=== PATIENT | male | born 1985 | race Caucasian/White ===

== ENCOUNTER 2020-10-14 01:28 | Emergency (ER) | payer MEDICAID ==
[2020-10-14] MEDS ORDERED: Ketorolac 60 MG/2 ML SDV IM ONE (02:08)
[2020-10-14] MEDS ORDERED: Acetaminophen 325 MG Tab PO ONE (02:08)
[2020-10-14] MEDS ORDERED: Cyclobenzaprine 10 MG Tab PO ONE (02:09)
--- NOTE | 2020-10-14 02:14 | EDM.PDOC ---
ED HPI GENERAL MEDICAL PROBLEM - General Chief Complaint: Back Pain or Injury Stated Complaint: BACK PAIN Time Seen by Provider: 10/14/20 01:51 Source of Information: Reports: Patient, RN Notes Reviewed - History of Present Illness INITIAL COMMENTS - FREE TEXT/NARRATIVE: 35 yr old male with onset of back pain 1 1/2 days ago, now worse. Pain is L mid back without radiation. Worse with motion with occasional spasms. No hx of back problems. 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 Back Pain Score (Numeric/FACES): 10 - Related Data Allergies Allergy/AdvReac Type Severity Reaction Status Date / Time No Known Allergies Allergy Verified 10/14/20 01:39 Home Meds: Home Meds Cyclobenzaprine [Flexeril] 5 mg PO TID #10 tab 10/14/20 [Rx] Naproxen [Naprosyn] 500 mg PO Q12HR #14 tab 10/14/20 [Rx] Past Medical History - Past Health History Medical/Surgical History: Denies Medical/Surgical History - Infectious Disease History Infectious Disease History: Reports: None Social & Family History - Tobacco Use Tobacco Use Status *Q: Never Tobacco User Second Hand Smoke Exposure: No - Caffeine Use Caffeine Use: Reports: Energy Drinks - Recreational Drug Use Recreational Drug Use: No ED ROS GENERAL - Review of Systems Review Of Systems: See Below Constitutional: Reports: No Symptoms HEENT: Reports: No Symptoms Respiratory: Reports: No Symptoms Cardiovascular: Denies: Chest Pain GI/Abdominal: Denies: Abdominal Pain, Vomiting Musculoskeletal: Reports: Back Pain Skin: Reports: No Symptoms Neurological: Denies: Numbness, Tingling ED EXAM,LOWER BACK PAIN/INJURY - Physical Exam Exam: See Below General Appearance: Alert, Mild Distress Head: Atraumatic Neck: Supple Respiratory/Chest: No Respiratory Distress Back Exam: Other (mild tenderness L mid back, mild spasm L back). No: Vertebral Tenderness Extremities: Normal Inspection, Normal Range of Motion Neurological: Alert, No Motor/Sensory Deficits Skin Exam: Warm, Dry, Normal Color, No Rash Course - Vital Signs Last Recorded V/S: Last Vital Signs Temp 97.6 F 10/14/20 01:35 Pulse 75 10/14/20 01:35 Resp 24 H 10/14/20 01:35 BP 153/80 H 10/14/20 01:35 Pulse Ox 97 10/14/20 01:35 - Orders/Labs/Meds Meds: Medications Discontinued Medications Generic Name Dose Route Start Last Admin Trade Name Jose C PRN Reason Stop Dose Admin Acetaminophen 975 mg 10/14/20 02:08 10/14/20 02:19 Acetaminophen 325 Mg Tab PO 10/14/20 02:09 975 mg NOW ONE Administration Cyclobenzaprine HCl 10 mg 10/14/20 02:09 10/14/20 02:19 Cyclobenzaprine 10 Mg Tab PO 10/14/20 02:10 10 mg ONETIME ONE Administration Ketorolac Tromethamine 60 mg 10/14/20 02:08 10/14/20 02:19 Ketorolac 60 Mg/2 Ml Sdv IM 10/14/20 02:09 60 mg ONETIME ONE Administration Departure - Departure Time of Disposition: 02:14 Disposition: Home, Self-Care 01 Condition: Fair Clinical Impression: Back pain - Discharge Information Prescriptions: Cyclobenzaprine [Flexeril] 5 mg PO TID #10 tab Naproxen [Naprosyn] 500 mg PO Q12HR #14 tab Instructions: Chronic Back Pain, [id number] Referrals: PCP,None [Primary Care Provider] - Forms: ED Department Discharge Additional Instructions: Try avoid heavy lifting as best you can. You have been given torodol IM, tylenol and flexeril muscle relaxant while here in the ED. Start naprosyn 500 mg twice daily for pain and inflamation this morning. Tylenol in addition 3 times daily. Flexeril 5 gm 3 times daily. Prescriptions have been sent to the [facility] [place] [address] [place] [address] Alternate ice and heat as needed. Follow up clinic as needed if symptoms not resolving as expected. Sepsis Event Note (ED) - Evaluation Sepsis Screening Result: No Definite Risk - Focused Exam Vital Signs: Vital Signs Temp Pulse Resp BP Pulse Ox 10/14/20 01:35 97.6 F 75 24 H 153/80 H 97
== END 2020-10-14 02:40 | disposition home or self-care (01) ==
LOC: JD.ED 01:28
DX: M54.6 Pain in thoracic spine (principal); X50.0XXA Overexertion from strenuous movement or load, initial encounter; Y99.0 Civilian activity done for income or pay
CPT/HCPCS: 96372; 99283; A9270; J1885